=== PATIENT | male | born 1965 | race Native Hawaiian/Other Pacific Islander ===

== ENCOUNTER 2018-12-07 07:24 | Outpatient (CLI) | payer OTHER ==
[2018-12-07 08:49] LABS: PLATELET COUNT 299 K/uL (142-355)
[2018-12-07 09:08] LABS: POTASSIUM 4.1 mmol/L (3.6-5.2)
== END 2018-12-07 23:14 | disposition home or self-care (01) ==
LOC: LABW 07:24
PROVIDERS: Physician Assistant Medical
DX: E11.65 Type 2 diabetes mellitus with hyperglycemia (principal); E29.1 Testicular hypofunction
CPT/HCPCS: 36415; 80053; 80061; 81000; 82043; 82570; 83036; 84403; 85027

== ENCOUNTER 2019-05-14 08:10 | Outpatient (CLI) | payer OTHER ==
[2019-05-14 08:32] LABS: PLATELET COUNT 236 K/uL (142-355)
[2019-05-14 08:55] LABS: POTASSIUM 3.7 mmol/L (3.6-5.2)
== END 2019-05-14 19:07 | disposition home or self-care (01) ==
LOC: LABW 08:10
PROVIDERS: Physician Assistant Medical
DX: I10 Essential (primary) hypertension (principal); D45 Polycythemia vera; E11.65 Type 2 diabetes mellitus with hyperglycemia; E29.1 Testicular hypofunction; Z12.5 Encounter for screening for malignant neoplasm of prostate; R53.81 Other malaise
CPT/HCPCS: 36415; 80053; 80061; 81000; 82607; 82728; 83036; 83540; 83735; 84153; 84403; 84439; 84443; 85027

== ENCOUNTER 2019-11-29 07:49 | Outpatient (CLI) | payer OTHER | END 2019-11-29 19:11 | disposition home or self-care (01) | LOC: RAD 07:49 | DX: M25.522 Pain in left elbow (principal) ==

== ENCOUNTER 2020-05-25 08:32 | Outpatient (CLI) | payer OTHER ==
[2020-05-25 09:06] LABS: PLATELET COUNT 213 K/uL (142-355)
[2020-05-25 09:46] LABS: POTASSIUM 4.2 mmol/L (3.6-5.2)
== END 2020-05-25 21:42 | disposition home or self-care (01) ==
LOC: LABW 08:32
PROVIDERS: ATTEND Internal Medicine Endocrinology, Diabetes & Metabolism
DX: Z00.00 Encounter for general adult medical examination without abnormal findings (principal); E11.65 Type 2 diabetes mellitus with hyperglycemia; I10 Essential (primary) hypertension; E78.5 Hyperlipidemia, unspecified; F41.9 Anxiety disorder, unspecified; R53.83 Other fatigue; Z79.899 Other long term (current) drug therapy
CPT/HCPCS: 36415; 80053; 80061; 81000; 82306; 82607; 83036; 85027

== ENCOUNTER 2020-06-29 12:44 | Outpatient (CLI) | payer OTHER ==
[~2020-06-29] VITALS: Ht 190.5 cm; Wt 143.8 kg
== END 2020-06-29 21:21 | disposition home or self-care (01) ==
LOC: DIABINF 12:44
PROVIDERS: ATTEND Internal Medicine Endocrinology, Diabetes & Metabolism
DX: E11.65 Type 2 diabetes mellitus with hyperglycemia (principal); I10 Essential (primary) hypertension; E78.2 Mixed hyperlipidemia; F33.9 Major depressive disorder, recurrent, unspecified; F41.1 Generalized anxiety disorder; E55.9 Vitamin D deficiency, unspecified; E66.8 Other obesity; Z68.39 Body mass index [BMI] 39.0-39.9, adult
CPT/HCPCS: 82948; 96365; 96366; 96521; 99204; J1718; J1815

== ENCOUNTER 2020-06-30 12:37 | Outpatient (CLI) | payer OTHER ==
[~2020-06-30] VITALS: Ht 190.5 cm; Wt 143.8 kg
== END 2020-06-30 21:21 | disposition home or self-care (01) ==
LOC: DIABINF 12:37
PROVIDERS: ATTEND Internal Medicine Endocrinology, Diabetes & Metabolism
DX: E11.65 Type 2 diabetes mellitus with hyperglycemia (principal); I10 Essential (primary) hypertension; E78.2 Mixed hyperlipidemia; F33.9 Major depressive disorder, recurrent, unspecified; F41.1 Generalized anxiety disorder; E55.9 Vitamin D deficiency, unspecified; E66.8 Other obesity; Z68.39 Body mass index [BMI] 39.0-39.9, adult
CPT/HCPCS: 82948; 96365; 96366; 96521; 99214; J1718; J1815

== ENCOUNTER 2020-07-13 12:42 | Outpatient (CLI) | payer OTHER ==
[~2020-07-13] VITALS: Ht 190.5 cm; Wt 143.8 kg
== END 2020-07-13 20:35 | disposition home or self-care (01) ==
LOC: DIABINF 12:42
PROVIDERS: ATTEND Internal Medicine Endocrinology, Diabetes & Metabolism
DX: E11.65 Type 2 diabetes mellitus with hyperglycemia (principal); I10 Essential (primary) hypertension; E78.2 Mixed hyperlipidemia; F33.9 Major depressive disorder, recurrent, unspecified; F41.1 Generalized anxiety disorder; E55.9 Vitamin D deficiency, unspecified; E66.8 Other obesity; Z68.39 Body mass index [BMI] 39.0-39.9, adult
CPT/HCPCS: 82948; 96365; 96366; 96521; 99214; J1718; J1815

== ENCOUNTER 2020-07-20 12:39 | Outpatient (CLI) | payer OTHER ==
[~2020-07-20] VITALS: Ht 190.5 cm; Wt 143.8 kg
== END 2020-07-20 20:30 | disposition home or self-care (01) ==
LOC: DIABINF 12:39
PROVIDERS: ATTEND Internal Medicine Endocrinology, Diabetes & Metabolism
DX: E11.65 Type 2 diabetes mellitus with hyperglycemia (principal); I10 Essential (primary) hypertension; E78.2 Mixed hyperlipidemia; F33.9 Major depressive disorder, recurrent, unspecified; F41.1 Generalized anxiety disorder; E55.9 Vitamin D deficiency, unspecified; E66.8 Other obesity; Z68.39 Body mass index [BMI] 39.0-39.9, adult
CPT/HCPCS: 82948; 96365; 96366; 96521; J1815; J1817

== ENCOUNTER 2020-07-21 12:22 | Outpatient (CLI) | payer OTHER ==
[~2020-07-21] VITALS: Ht 190.5 cm; Wt 143.8 kg
== END 2020-07-21 21:54 | disposition home or self-care (01) ==
LOC: DIABINF 12:22
PROVIDERS: ATTEND Internal Medicine Endocrinology, Diabetes & Metabolism
DX: E11.65 Type 2 diabetes mellitus with hyperglycemia (principal); I10 Essential (primary) hypertension; E78.2 Mixed hyperlipidemia; F33.9 Major depressive disorder, recurrent, unspecified; F41.1 Generalized anxiety disorder; E55.9 Vitamin D deficiency, unspecified; E66.8 Other obesity; Z68.39 Body mass index [BMI] 39.0-39.9, adult
CPT/HCPCS: 82948; 96365; 96366; 96521; J1815; J1817

== ENCOUNTER 2020-07-28 12:35 | Outpatient (CLI) | payer OTHER ==
[~2020-07-28] VITALS: Ht 190.5 cm; Wt 143.8 kg
== END 2020-07-28 22:41 | disposition home or self-care (01) ==
LOC: DIABINF 12:35
PROVIDERS: ATTEND Internal Medicine Endocrinology, Diabetes & Metabolism
DX: E11.65 Type 2 diabetes mellitus with hyperglycemia (principal); I10 Essential (primary) hypertension; E78.2 Mixed hyperlipidemia; F33.9 Major depressive disorder, recurrent, unspecified; F41.1 Generalized anxiety disorder; E55.9 Vitamin D deficiency, unspecified; E66.8 Other obesity; Z68.39 Body mass index [BMI] 39.0-39.9, adult
CPT/HCPCS: 82948; 96365; 96366; 96521; J1815; J1817

== ENCOUNTER 2020-08-04 11:04 | Outpatient (CLI) | payer OTHER ==
[~2020-08-04] VITALS: Ht 190.5 cm; Wt 143.8 kg
== END 2020-08-04 22:19 | disposition home or self-care (01) ==
LOC: DIABINF 11:04
PROVIDERS: ATTEND Internal Medicine Endocrinology, Diabetes & Metabolism
DX: E11.65 Type 2 diabetes mellitus with hyperglycemia (principal); I10 Essential (primary) hypertension; E78.2 Mixed hyperlipidemia; F33.0 Major depressive disorder, recurrent, mild; F41.1 Generalized anxiety disorder; E55.9 Vitamin D deficiency, unspecified; E66.8 Other obesity; Z68.39 Body mass index [BMI] 39.0-39.9, adult
CPT/HCPCS: 82948; 96365; 96366; 96521; J1815; J1817

== ENCOUNTER 2020-08-18 12:48 | Outpatient (CLI) | payer OTHER ==
[~2020-08-18] VITALS: Ht 190.5 cm; Wt 143.8 kg
== END 2020-08-18 20:10 | disposition home or self-care (01) ==
LOC: DIABINF 12:48
PROVIDERS: ATTEND Internal Medicine Endocrinology, Diabetes & Metabolism
DX: E11.65 Type 2 diabetes mellitus with hyperglycemia (principal); I10 Essential (primary) hypertension; E78.2 Mixed hyperlipidemia; F33.0 Major depressive disorder, recurrent, mild; F41.1 Generalized anxiety disorder; E55.9 Vitamin D deficiency, unspecified; E66.8 Other obesity; Z68.39 Body mass index [BMI] 39.0-39.9, adult
CPT/HCPCS: 82948; 96365; 96366; 96521; J1815; J1817

== ENCOUNTER 2020-08-25 12:43 | Outpatient (CLI) | payer OTHER ==
[~2020-08-25] VITALS: Ht 190.5 cm; Wt 143.8 kg
== END 2020-08-25 19:21 | disposition home or self-care (01) ==
LOC: DIABINF 12:43
PROVIDERS: ATTEND Internal Medicine Endocrinology, Diabetes & Metabolism
DX: E11.65 Type 2 diabetes mellitus with hyperglycemia (principal); I10 Essential (primary) hypertension; E78.2 Mixed hyperlipidemia; F33.0 Major depressive disorder, recurrent, mild; F41.1 Generalized anxiety disorder; E55.9 Vitamin D deficiency, unspecified; E66.8 Other obesity; Z68.39 Body mass index [BMI] 39.0-39.9, adult; R71.8 Other abnormality of red blood cells
CPT/HCPCS: 82948; 96365; 96366; 96521; J1815; J1817

== ENCOUNTER 2020-09-01 12:40 | Outpatient (CLI) | payer OTHER ==
[~2020-09-01] VITALS: Ht 190.5 cm; Wt 143.8 kg
== END 2020-09-01 16:00 | disposition home or self-care (01) ==
LOC: DIABINF 12:40
PROVIDERS: ATTEND Internal Medicine Endocrinology, Diabetes & Metabolism
DX: E11.65 Type 2 diabetes mellitus with hyperglycemia (principal); E55.9 Vitamin D deficiency, unspecified; E78.2 Mixed hyperlipidemia; I10 Essential (primary) hypertension; F41.1 Generalized anxiety disorder; F33.8 Other recurrent depressive disorders; D75.1 Secondary polycythemia; E66.8 Other obesity; Z68.39 Body mass index [BMI] 39.0-39.9, adult; J30.89 Other allergic rhinitis
CPT/HCPCS: 82948; 96365; 96366; 96521; J1815; J1817

== ENCOUNTER 2020-09-15 12:47 | Outpatient (CLI) | payer OTHER | END 2020-09-15 23:20 | disposition home or self-care (01) | LOC: DIABINF 12:47 | PROVIDERS: ATTEND Internal Medicine Endocrinology, Diabetes & Metabolism | DX: E11.65 Type 2 diabetes mellitus with hyperglycemia (principal); I10 Essential (primary) hypertension; E78.2 Mixed hyperlipidemia; F33.8 Other recurrent depressive disorders; F41.1 Generalized anxiety disorder; E55.9 Vitamin D deficiency, unspecified; E66.8 Other obesity; Z68.39 Body mass index [BMI] 39.0-39.9, adult; D75.1 Secondary polycythemia | CPT/HCPCS: 82948; 96365; 96366; 96521; J1817 ==

== ENCOUNTER 2020-09-22 12:58 | Outpatient (CLI) | payer OTHER ==
[~2020-09-22] VITALS: Ht 190.5 cm; Wt 143.8 kg
== END 2020-09-22 22:35 | disposition home or self-care (01) ==
LOC: DIABINF 12:58
PROVIDERS: ATTEND Internal Medicine Endocrinology, Diabetes & Metabolism
DX: E11.65 Type 2 diabetes mellitus with hyperglycemia (principal); I10 Essential (primary) hypertension; E78.2 Mixed hyperlipidemia; F33.0 Major depressive disorder, recurrent, mild; F41.1 Generalized anxiety disorder; E55.9 Vitamin D deficiency, unspecified; E66.8 Other obesity; Z68.39 Body mass index [BMI] 39.0-39.9, adult; R71.8 Other abnormality of red blood cells
CPT/HCPCS: 82948; 96365; 96366; 96521; J1815; J1817